=== PATIENT | male | born 1995 | race Caucasian/White ===

== ENCOUNTER → 2023-10-26 08:56 | Outpatient (REF) | payer OTHER, SELFPAY | LOC: WOUND 08:56 | PROVIDERS: ATTENDING PHYSICIAN Surgery; REFERRING PHYSICIAN Family Medicine | DX: S51.002A Unspecified open wound of left elbow, initial encounter (principal); S51.831A Puncture wound without foreign body of right forearm, initial encounter; F19.20 Other psychoactive substance dependence, uncomplicated; I38 Endocarditis, valve unspecified; X58.XXXA Exposure to other specified factors, initial encounter | CPT/HCPCS: 11042; 99203 ==

== ENCOUNTER → 2023-11-02 08:55 | Outpatient (REF) | payer OTHER, SELFPAY | LOC: WOUND 08:55 | PROVIDERS: ATTENDING PHYSICIAN Surgery; REFERRING PHYSICIAN Family Medicine | DX: S51.002A Unspecified open wound of left elbow, initial encounter (principal); S51.831A Puncture wound without foreign body of right forearm, initial encounter; F19.20 Other psychoactive substance dependence, uncomplicated; I38 Endocarditis, valve unspecified; X58.XXXA Exposure to other specified factors, initial encounter | CPT/HCPCS: 11042 ==

== ENCOUNTER → 2023-11-09 08:58 | Outpatient (REF) | payer OTHER, SELFPAY | LOC: WOUND 08:58 | PROVIDERS: ATTENDING PHYSICIAN Surgery; REFERRING PHYSICIAN Family Medicine | DX: S51.002A Unspecified open wound of left elbow, initial encounter (principal); S51.831A Puncture wound without foreign body of right forearm, initial encounter; F19.20 Other psychoactive substance dependence, uncomplicated; I38 Endocarditis, valve unspecified; X58.XXXA Exposure to other specified factors, initial encounter | CPT/HCPCS: 17250; 99213 ==

== ENCOUNTER → 2023-11-16 09:04 | Outpatient (REF) | payer OTHER, SELFPAY | LOC: WOUND 09:04 | PROVIDERS: ATTENDING PHYSICIAN Surgery; FAMILY PHYSICIAN Family Medicine | DX: S51.002A Unspecified open wound of left elbow, initial encounter (principal); S51.831A Puncture wound without foreign body of right forearm, initial encounter; F19.20 Other psychoactive substance dependence, uncomplicated; I38 Endocarditis, valve unspecified; X58.XXXA Exposure to other specified factors, initial encounter | CPT/HCPCS: 99213 ==

== ENCOUNTER → 2023-11-23 09:43 | Outpatient (REF) | payer OTHER, SELFPAY | LOC: WOUND 09:43 | PROVIDERS: ATTENDING PHYSICIAN Surgery; FAMILY PHYSICIAN Family Medicine | DX: S51.002A Unspecified open wound of left elbow, initial encounter (principal); S51.831A Puncture wound without foreign body of right forearm, initial encounter; F19.20 Other psychoactive substance dependence, uncomplicated; I38 Endocarditis, valve unspecified; X58.XXXA Exposure to other specified factors, initial encounter | CPT/HCPCS: 99213 ==

== ENCOUNTER 2025-01-13 10:19 | Emergency (ER) | payer OTHER, SELFPAY ==
[2025-01-13 10:22] VITALS: BP 131/87
[2025-01-13] MEDS: TYLENOL 1000 MG PO (10:58)
[2025-01-13] MEDS: DECADRON 10 MG PO (10:58)
--- NOTE | 2025-01-13 13:06 | ED.GENMED ---
History of Present Illness
General
Chief Complaint: Musculo-Skeletal Complaint
Source: patient
Exam Limitations: none
Time Seen by Provider: 01/13/25 10:35
Nursing documentation reviewed up to this point in time: agreed with
History of Present Illness
History of Present Illness:
29-year-old male presenting to the emergency department today with concerns of abrupt pain when lifting yesterday to the left upper back. Now ongoing pain to the left upper back with some radiation down his left arm. Denies any chest pain
shortness of breath nausea vomiting pain is only reproduced with certain movements and positioning.
Past History
Past History
ED Past Medical History: CVA, HTN, Hypercholesterolemia, Psychiatric and Other (TBI, bacterial endocarditis, Neuropathy, right foot drop, IBS)
ED Past Surgical History: Cardiac (Tricuspid valve replaced, Pacemaker), Orthopedic (Cervical disk replacement) and Other (Angio VAC, cervical disc replacement)
Social History
Tobacco: Former smoker
Alcohol: None
Drug: IVDA (relapsed)
Personal: Single
Living: with family
Family History
Family History: Negative Diabetes, Hypertension or CAD
Review of Systems
Review of Systems
Allergies reviewed?: Yes
All Other Systems: ROS reviewed and negative except as documented in HPI and ROS
Phy Exam
Physical Exam
Physical Exam:
GENERAL: Alert , in no apparent distress
EYE: pupils equal and reactive
NECK: Supple, no significant adenopathy.
ENT: o/p clr, mmm.
CARDIAC: Regular rate and rhythm .
LUNGS: Clear breath sounds bilaterally, no acute respiratory distress, no wheezes/rales/rhonchi
ABDOMEN: Soft, without focal tenderness, no r/g, no cvat
NEUROLOGICAL: Alert and oriented, no focal neuro deficits
SKIN: Warm and dry, skin intact.
MUSCULOSKELETAL: Retraction of the scapula no edema, well perfused.
PSYCH: Normal and appropriate interaction.
Increased discomfort to the left upper back
Course
Orders/Labs/Results
Orders:
Orders
01/13/25 10:53
Acetaminophen [Tylenol] 1,000 mg PO NOW STA
Dexamethasone [Decadron] 10 mg PO NOW STA
Thoracic Spine 3 Views CR [CR Thoracic Spine 3 Views] Urgent
Comment:
Reason For Exam: mid thoracic pain, pain into left arm, hx of traum
Vital Signs
Initial and Last Documented VS:
Initial Vital Signs
Temp Pulse Resp BP Pulse Ox
98.0 F 97 16 131/87 98
01/13/25 10:22 01/13/25 10:22 01/13/25 10:22 01/13/25 10:22 01/13/25 10:22
Last Documented Vital Signs
Temp Pulse Resp BP Pulse Ox
98.0 F 97 16 131/87 98
01/13/25 10:22 01/13/25 10:22 01/13/25 10:22 01/13/25 10:22 01/13/25 10:22
MDM/Problems Addressed
MDM/Problems Addressed:
29-year-old male presenting to the emergency department with left upper back discomfort made worse with movement specifically when lifting yesterday. Made worse with specific position and movement on examination. No overlying skin changes. No
midline pain. Normal vital signs. Patient has symptoms that are very reproducible to palpation, with movement and was abrupt while lift making musculoskeletal problem very likely. Internal process unlikely. Stable for outpatient management
return precautions given.
*Critical Care Note
Total Time (30-74mins, 75-104mins- exclusive of procedures): Not Applicable
ED Attending Note
-
Portions of this chart may have been created with voice recognition software.� Occasional wrong word or��sound alike� substitutions may have occurred due to the inherent limitations of voice recognition software.
Discharge Plan
Departure
Patient Disposition: Home (Routine Discharge)
Date of Disposition: 01/13/25
Time of Disposition: 13:07
Patient with high blood pressure during this ER visit?: No
Condition: Good
Covid-19: Not Applicable
Discharge Problem:
Muscle strain of upper back
Instructions: Muscle Strain (DC)
Prescriptions:
New
tizanidine 4 mg capsule
4 mg PO BID PRN (Reason: muscle spasticity) Qty: 7 0RF
prednisone 20 mg tablet
40 mg PO DAILY 3 Days Qty: 6 0RF
No Action
mirtazapine [Remeron] 15 mg Tablet
15 mg PO HS
aripiprazole [Abilify] 5 mg Tablet
5 mg PO DAILY
bupropion HCl [Wellbutrin XL] 150 mg Tablet Extended Release 24 Hr
150 mg PO DAILY
metoprolol tartrate 25 mg tablet
25 mg PO BID
pregabalin 100 mg capsule
100 mg PO BID
Patient Comments:
10/17/2023: last filled 09/11/23, 60 tabs for 30 days from [id number]
buprenorphine-naloxone 8-2 mg film
1 film sublingual DAILY
Patient Comments:
10/17/2023: last filled 10/12/23, 30 film for 30 days
Rx Instructions:
pt takes 8mg SL daily
nicotine 21 mg/24 hr Patch 24 Hour
21 mg transdermal DAILY Qty: 30 0RF
acetaminophen [Tylenol Extra Strength] 500 mg tablet
1,000 mg PO Q6H PRN (Reason: mild pain) Qty: 20 0RF
levofloxacin 750 mg Tablet
750 mg PO DAILY Qty: 5 0RF
amoxicillin-pot clavulanate 875-125 mg Tablet
1 tab PO Q12 Qty: 11 0RF
Referrals:
Ryan Choi DO [Family Provider] -
Activity Restrictions/Additional Instructions:
You came to the emergency department today with concerns of discomfort to your upper back. Here your reassuring imaging. Please take the prescribed medications help with symptoms. Return for any worsening, new or concerning symptoms.
Interventions
Interventions:
*Risk Screen - Suicide Last Done: 01/13/25 10:22
*Neglect/Abuse Screening Last Done: 01/13/25 10:22
ED-Musculoskeletal Assessment Last Done: 01/13/25 10:50
Discharge Date and Time
Print Language: TURKISH
== END 2025-01-13 14:10 | disposition home or self-care (01) ==
LOC: EMR 10:19
PROVIDERS: EMERGENCY PHYSICIAN Emergency Medicine; FAMILY PHYSICIAN Family Medicine
DX: S29.012A Strain of muscle and tendon of back wall of thorax, initial encounter (principal); X50.0XXA Overexertion from strenuous movement or load, initial encounter; I10 Essential (primary) hypertension; Z87.891 Personal history of nicotine dependence
CPT/HCPCS: 99283; 72072

== ENCOUNTER → 2025-06-29 14:09 | Outpatient (REF) | payer OTHER, SELFPAY | LOC: RCS 14:09 | PROVIDERS: ATTENDING PHYSICIAN Student in an Organized Health Care Education/Training Program; FAMILY PHYSICIAN Family Medicine | DX: I45.6 Pre-excitation syndrome (principal) | CPT/HCPCS: 93017 ==

== ENCOUNTER → 2025-07-05 09:12 | Outpatient (REF) | payer OTHER, SELFPAY | LOC: HWRCS 09:12 | PROVIDERS: ATTENDING PHYSICIAN Student in an Organized Health Care Education/Training Program; FAMILY PHYSICIAN Family Medicine | DX: Z95.2 Presence of prosthetic heart valve (principal) | CPT/HCPCS: 93306 ==